=== PATIENT | male | born 1975 | race African-American/Black ===

== ENCOUNTER 2018-06-29 21:12 | Emergency (ER) | payer OTHER, MEDICAID ==
[~2018-06-29] VITALS: Ht 172.7 cm; Wt 69.0 kg
[2018-06-30] MEDS ORDERED: PREDNISONE 20MG TABLET PO STA (00:38)
[2018-06-30] MEDS ORDERED: IPRATROPIUM BROMIDE (0.02%) 0.5MG/2.5ML NEB HHN STA (00:38)
[2018-06-30] MEDS ORDERED: ALBUTEROL (0.083%) 2.5MG/3ML NEB HHN STA (00:38)
[2018-06-30 01:14] LABS: HEMATOCRIT 46.4 % (42.0-52.0); HEMOGLOBIN 15.2 g/dL (14.0-18.0); MEAN CORPUSCULAR HEMOGLOBIN 29.8 pg (28.0-32.0); MEAN CORPUSCULAR VOLUME 90.6 fL (80.0-94.0); PLATELET 267 x1000/uL (130-400); RED BLOOD CELL COUNT 5.12 mill/uL (4.7-6.1); RED CELL DISTRIBUTION WIDTH 14.4 % (11.6-14.6)
[2018-06-30 01:22] LABS: CHLORIDE 104 mEq/L (98-107)
[2018-06-30] MEDS ORDERED: IPRATROPIUM BROMIDE (0.02%) 0.5MG/2.5ML NEB HHN NR (02:13)
[2018-06-30] MEDS ORDERED: ALBUTEROL (0.083%) 2.5MG/3ML NEB HHN NR (02:13)
[2018-06-30 03:12] VITALS: BP 113/67
== END 2018-06-30 03:20 | disposition home or self-care (01) ==
LOC: ER 22:07
DX: J44.1 Chronic obstructive pulmonary disease with (acute) exacerbation (principal); F12.10 Cannabis abuse, uncomplicated
CPT/HCPCS: 36415; 71045; 80053; 83605; 85027; 87040; 93005; 94640; 99284; J7512; J7611

== ENCOUNTER 2019-02-16 05:13 | Emergency (ER) | payer OTHER, MEDICAID ==
[~2019-02-16] VITALS: Ht 172.7 cm; Wt 73.0 kg
[2019-02-16] MEDS ORDERED: IPRATROPIUM BROMIDE (0.02%) 0.5MG/2.5ML NEB HHN STA (05:20)
[2019-02-16] MEDS ORDERED: ALBUTEROL (0.083%) 2.5MG/3ML NEB HHN STA (05:20)
[2019-02-16 05:34] LABS: BASOPHILS % 1.2 % (0.0-2.0); EOSINOPHILS % 11.1 % (0.0-5.0); HEMATOCRIT. 46.5 % (42.0-52.0); HEMOGLOBIN. 15.3 g/dL (14.0-18.0); MEAN CORPUSCULAR HEMOGLOBIN 29.7 pg (28.0-32.0); MEAN CORPUSCULAR VOLUME 90.2 fL (80.0-94.0); MEAN PLATELET VOLUME 7.5 fl (7.4-10.4); MONOCYTES % 12.8 % (2.0-8.0); NEUTROPHILS % 37.9 % (40.0-76.0); PLATELET 204 x1000/uL (130-400); RED BLOOD CELL COUNT 5.16 mill/uL (4.7-6.1); RED CELL DISTRIBUTION WIDTH 14.9 % (11.6-14.6)
[2019-02-16 05:40] LABS: CHLORIDE 105 mEq/L (98-107)
[2019-02-16 07:00] VITALS: BP 131/85
== END 2019-02-16 07:00 | disposition home or self-care (01) ==
LOC: ER 05:29
DX: J44.1 Chronic obstructive pulmonary disease with (acute) exacerbation (principal); F12.10 Cannabis abuse, uncomplicated; Z86.59 Personal history of other mental and behavioral disorders
CPT/HCPCS: 36415; 71045; 80053; 83880; 84484; 85025; 93005; 94640; 99284; J7611

== ENCOUNTER 2019-04-03 20:54 | Emergency (ER) | payer OTHER, MEDICAID ==
[~2019-04-03] VITALS: Ht 172.7 cm; Wt 78.0 kg
[2019-04-03] MEDS ORDERED: IPRATROPIUM BROMIDE (0.02%) 0.5MG/2.5ML NEB HHN STA (21:56)
[2019-04-03] MEDS ORDERED: ALBUTEROL (0.083%) 2.5MG/3ML NEB HHN STA (21:56)
[2019-04-03] MEDS ORDERED: DEXAMETHASONE 4MG/ML 1ML VIAL IV ONE (22:00)
[2019-04-03 22:57] LABS: HEMATOCRIT. 44.6 % (42.0-52.0); HEMOGLOBIN. 14.9 g/dL (14.0-18.0); MEAN CORPUSCULAR HEMOGLOBIN 30.2 pg (28.0-32.0); MEAN CORPUSCULAR VOLUME 90.3 fL (80.0-94.0); MEAN PLATELET VOLUME 7.6 fl (7.4-10.4); PLATELET 189 x1000/uL (130-400); RED BLOOD CELL COUNT 4.94 mill/uL (4.7-6.1); RED CELL DISTRIBUTION WIDTH 15.1 % (11.6-14.6)
[2019-04-03 23:03] LABS: CHLORIDE 107 mEq/L (98-107)
[2019-04-04] MEDS ORDERED: AZITHROMYCIN 500 MG in DEXT 5% WATER 250 ML IV SCH ×2
[2019-04-04 00:14] LABS: PLATELET ESTIMATE NORMAL
[2019-04-04] MEDS ORDERED: MAGNESIUM 2 G PREMIX 50 ML IV ONE (01:45)
[2019-04-04] MEDS ORDERED: ALBUTEROL (0.083%) 2.5MG/3ML NEB HHN ONE (01:45)
[2019-04-04 02:44] VITALS: BP 108/66
== END 2019-04-04 03:08 | disposition short-term general hospital (02) ==
LOC: ER 20:54
DX: J44.1 Chronic obstructive pulmonary disease with (acute) exacerbation (principal); J45.901 Unspecified asthma with (acute) exacerbation; F12.10 Cannabis abuse, uncomplicated; F31.9 Bipolar disorder, unspecified; G89.29 Other chronic pain; M54.9 Dorsalgia, unspecified
CPT/HCPCS: 36415; 71045; 80053; 83880; 84484; 85025; 93005; 94644; 96365; 96367; 96375; 99285; J1100; J3475; J7611

== ENCOUNTER 2021-12-19 16:14 | Emergency (ER) | payer OTHER, MEDICAID ==
[~2021-12-19] VITALS: Ht 177.8 cm; Wt 75.0 kg
[2021-12-19] MEDS ORDERED: ALBUTEROL (0.083%) 2.5MG/3ML NEB HHN STA ×2 (16:54→18:38)
[2021-12-19] MEDS ORDERED: METHYLPREDNISOLONE SOD SUCC 125 MG/2 ML VIAL IV STA (16:54)
[2021-12-19] MEDS ORDERED: IPRATROPIUM BROMIDE (0.02%) 0.5MG/2.5ML NEB HHN STA (16:54)
[2021-12-19] MEDS ORDERED: ASPIRIN 81MG TABLET PO ONE (17:00)
[2021-12-19 17:08] LABS: HEMATOCRIT. 46.3 % (42.0-52.0); HEMOGLOBIN. 15.2 g/dL (14.0-18.0); MEAN CORPUSCULAR HEMOGLOBIN 29.7 pg (28.0-32.0); MEAN CORPUSCULAR VOLUME 90.5 fL (80.0-94.0); MEAN PLATELET VOLUME 8.1 fl (7.4-10.4); PLATELET 173 x1000/uL (130-400); RED BLOOD CELL COUNT 5.12 mill/uL (4.7-6.1); RED CELL DISTRIBUTION WIDTH 15.3 % (11.6-14.6)
[2021-12-19 17:19] LABS: CHLORIDE 106 mEq/L (98-107)
[2021-12-19] MEDS ORDERED: POTASSIUM CHLORIDE 20MEQ TABLET SR PO ONE (18:30)
[2021-12-19] MEDS ORDERED: ALBU6.7H3 INH (18:42)
[2021-12-19] MEDS ORDERED: P20 MT (18:42)
[2021-12-19 19:20] LABS: PLATELET ESTIMATE NORMAL
[2021-12-19] MEDS ORDERED: ACETAMINOPHEN 325MG TABLET PO ONE (19:30)
[2021-12-19 20:45] VITALS: BP 113/64
== END 2021-12-19 20:47 | disposition home or self-care (01) ==
LOC: ER 16:14 → CANBEDREQ 12-20 11:26
DX: J44.1 Chronic obstructive pulmonary disease with (acute) exacerbation (principal); R00.0 Tachycardia, unspecified
CPT/HCPCS: 36415; 71045; 80053; 83880; 84484; 85025; 93005; 94640; 94644; 96374; 99285; J2930; 94664

== ENCOUNTER 2024-01-15 07:48 | Emergency (ER) | payer OTHER, MEDICAID ==
[~2024-01-15] VITALS: Ht 185.4 cm; Wt 77.0 kg
[~2024-01-15 07:48] MED LIST: ALBU6.7H3 INH; P20 MT
[2024-01-15 07:53] VITALS: TEMP 97.8; O2SAT 100
[2024-01-15 08:36] VITALS: BP 126/85; O2SAT 95
[2024-01-15 08:39] VITALS: PULSE 96; RESP 20
[2024-01-15] MEDS: IPRATROPIUM/ALBUTEROL 0.5-3(2.5)MG/3ML NEB HHN ONE ×2 (08:39→08:54)
[2024-01-15] MEDS: DEXAMETHASONE 4MG TABLET PO ONE (09:04)
[2024-01-15 10:58] VITALS: PULSE 96; RESP 20
[2024-01-15] MEDS: ALBUTEROL (0.5%) 2.5MG/0.5ML NEB HHN NR (10:58)
== END 2024-01-15 11:57 | disposition home or self-care (01) ==
LOC: ER 07:48
DX: J45.901 Unspecified asthma with (acute) exacerbation (principal); J44.1 Chronic obstructive pulmonary disease with (acute) exacerbation; F12.90 Cannabis use, unspecified, uncomplicated
CPT/HCPCS: 99284; 94640; J8540